=== PATIENT | male | born 1985 | race African-American/Black ===

== ENCOUNTER 2020-10-23 22:56 | Emergency (ER) | payer OTHER ==
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
[2020-10-24] MEDS ORDERED: ACETAMINOPHEN 500 MG TAB ONE (02:14)
[2020-10-24 05:08] VITALS: TEMP 99.9
[2020-10-24 05:12] VITALS: BP 144/105; O2SAT 95
--- NOTE | 2020-10-24 09:18 | RAD REPORT ---
EXAM DESCRIPTION: RAD - Shoulder Left 2 View - 10/24/2020 12:42 am CLINICAL HISTORY: Left shoulder pain FINDINGS: No fracture or dislocation is seen. Mild narrowing of the AC joint.
--- NOTE | 2020-10-24 11:43 | RAD REPORT ---
EXAM DESCRIPTION: CT - Head C Spine Cap W Con - 10/24/2020 5:04 am ADDENDUM #1 Critical findings discussed with Dr. Segundo. Electronically signed by: Starla Fields MD 10/24/2020 12:27 AM CDT End of Addendum EXAM DESCRIPTION: Head C Spine Cap W Con CLINICAL HISTORY: 35 years Male neck pain, high mechanism COMPARISON: None TECHNIQUE: Images were obtained and axial, sagittal, and coronal planes. Intravenous contrast was ad ministered. One or more of the following dose optimizing techniques was utilized for this exam: Automated exposur e control, adjustment of the mA and/or kV according to patient size, and/or use of iterative reconstr uction technique. FINDINGS: CT brain: Ventricular system appears normal. Questioned increased attenuation peripheral p osterior fossa bilaterally possibly blood products. Beam hardening artifact also a possibility. No ab normal increased attenuation seen involving the supratentorial brain parenchyma. No evidence for skul l fracture. Symmetric aeration mastoid air cells bilaterally. Fluid left maxillary antrum. Additional lobular mucosal thickening left maxillary antrum. Mild mucosal thickening bilateral ethmoid and righ t maxillary sinuses. CT cervical spine: Height of the vertebral bodies is intact. Satisfactory alignment articular facets. Intact odontoid and predental space. Intact ring C1. Posterior elements intact all levels. Intact oc cipital condyles. No abnormalities lung apices. No focal disc protrusion seen. CT chest: No aortic dissection or dilatation. No pericardial or pleural effusions bilaterally. No frederick nopathy. No lung parenchymal infiltrates seen. Calcified granuloma medial right middle lobe. No pneum othorax. No acute osseous abnormality involving the thorax. No sternal fracture. Height of the thorac ic vertebral bodies is intact. CT abdomen pelvis: No abnormality involving the liver, spleen, pancreas, or adrenal glands bilaterall y. Prior cholecystectomy. Symmetric renal parenchyma bilaterally. No obstructing renal or ureteral ca lculi bilaterally. No hydronephrosis bilaterally. Unremarkable bladder. No abnormality of abdominal a juanito or portal vein. No adenopathy or abnormal fluid collections seen. No acute osseous abnormality i nvolving the lumbosacral spine. No sacral fracture. Height of the lumbar vertebral bodies is intact. Satisfactory alignment noted. Transverse processes intact all levels. IMPRESSION: 1. Questioned increased attenuation peripheral posterior fossa bilaterally possibly bl ood products. Beam hardening artifact also a possibility. Correlation with follow-up imaging versus m agnetic resonance study of the brain suggested for further characterization. 2. No acute fracture or subluxation involving the cervical spine. 3. No acute intrathoracic abnormality. 4. No acute intra-abdominal abnormality. No evidence for large organ laceration. Electronically signed by: Starla Fields MD 10/24/2020 12:07 AM CDT Due to temporary technical issues with the PACS/Fluency reporting system, reports are being signed by the in house radiologists without review as a courtesy to insure prompt reporting. The interpreting radiologist is fully responsible for the content of the report.
--- NOTE | 2020-10-24 11:53 | RAD REPORT ---
EXAM DESCRIPTION: CT - Head Brain Wo Cont - 10/24/2020 5:04 am CLINICAL HISTORY: The patient is 35 years old and is Male; PAIN TECHNIQUE: Axial computed tomography images of the head/brain without intravenous contrast. Sagitt al and coronal reformatted images were created and reviewed. This CT exam was performed using one o r more of the following dose reduction techniques: automated exposure control, adjustment of the mA and/or kV according to patient size, and/or use of iterative reconstruction technique. COMPARISON: CT of the head performed October 23, 2020 FINDINGS: BRAIN: Unremarkable. The rashid-white matter differentiation is preserved . No hemorrhag e. No significant white matter disease. No edema. No extra-axial fluid collections. VENTRICLES: Unremarkable. No ventriculomegaly. BONES/JOINTS: No acute fracture. SOFT TISSUES: Unremarkable. SINUSES: Minimal fluid is present within the left maxillary sinus. MASTOID AIR CELLS: Unremarkable as visualized. No mastoid effusion. ORBITS: Unremarkable as visualized. IMPRESSION: No acute intracranial hemorrhage. Electronically signed by: Jane Perez MD 10/24/2020 1:15 AM CDT Due to temporary technical issues with the PACS/Fluency reporting system, reports are being signed by the in house radiologists without review as a courtesy to insure prompt reporting. The interpreting radiologist is fully responsible for the content of the report.
== END 2020-10-24 02:13 | disposition home or self-care (01) ==
LOC: ER 22:56
DX: G44.319 Acute post-traumatic headache, not intractable (principal); V43.52XA Car driver injured in collision with other type car in traffic accident, initial encounter
CPT/HCPCS: 82565; 70450 ×2; 72125; 71260; 74177; 73030; 99284; Q9967; G0390

== ENCOUNTER 2024-11-23 06:19 | Day surgery (SDC) | payer OTHER ==
[2024-11-19 09:12] LABS: Absolute Lymphocytes (CBC) 1.1 K/uL (0.7-4.9); Hematocrit 45.5 % (39.6-49.0); Hemoglobin 15.1 g/dL (13.6-17.9); MCH 28.7 pg (27.0-35.0); MCHC 33.1 g/dL (32.0-36.0); MCV 86.5 fL (80-100); MPV 10.4 fL (7.6-11.3); Nucleated RBC Absolute Count 0.0 (0-0); Nucleated Red Blood Cells % 0.0 % (0-0); RBC Red Blood Cell Count 5.26 M/uL (4.33-5.43); White Blood Count 4.60 thou/uL (4.3-10.9)
--- NOTE | 2024-11-19 09:18 | RAD REPORT ---
Procedure: Chest Pa And Lat (2 Views) HISTORY: Preop for hernia repair COMPARISON: none FINDINGS: The lungs appear clear of acute infiltrate. No significant pleural effusion noted. The heart is mildly to moderately enlarged. IMPRESSION: No acute abnormality is displayed.
[2024-11-19 09:27] LABS: Anion Gap 9.5 mEq/L (5.0-15.0); BUN Blood Urea Nitrogen 8.0 mg/dL (7-18); Glucose Level 101.0 mg/dL (74-106); Potassium 4.5 mEq/L (3.5-5.1)
[2024-11-23] MEDS: Ringers Lactate 1,000 ML IV ONE (06:19)
[2024-11-23] MEDS ORDERED: HYDROMORPHONE HCL 1 MG/ML INJ ONE (07:13)
[2024-11-23] MEDS ORDERED: SUGAMMADEX SODIUM 200 MG/2 ML VIAL IV ONE (07:13)
[2024-11-23] MEDS ORDERED: ONDANSETRON 4 MG/2 ML VIAL ONE (07:17)
[2024-11-23] MEDS ORDERED: FENTANYL CITR 100 MCG/2 ML ONE ×2 (07:17→07:34)
[2024-11-23] MEDS ORDERED: LIDOCAINE 2% MPF 5 ML VIAL ONE ×2 (07:17→08:13)
[2024-11-23] MEDS ORDERED: MIDAZOLAM HCL 2 MG/2 ML INJ ONE (07:17)
[2024-11-23] MEDS ORDERED: ROCURONIUM 50 MG/5 ML VIAL IV ONE (07:17)
[2024-11-23] MEDS: CEFAZOLIN SODIUM 2 GM/VIAL ONE (07:33)
[2024-11-23] MEDS ORDERED: NS 0.9% VIAL 10 ML ONE (07:53)
[2024-11-23] MEDS ORDERED: Phenylephrine HCl 10 MG/ML 1 ML VIAL ONE (07:53)
[2024-11-23] MEDS ORDERED: Mastisol Adhesive Liq ONE (08:12)
--- NOTE | 2024-11-23 08:32 | P.OP ---
Date of Service: 11/23/24 Preop diagnosis: Incarcerated umbilical hernia Postop diagnosis: Same Procedure performed: Laparoscopic assisted repair of incarcerated umbilical hernia Surgeon: Jovanny Hernandez MD Electrical Assistant: None Estimated blood loss: Minimal Specimen: Hernia sac and contents Findings: As above Anesthesia: General Complications: None Drains: None Fluids and blood products: Nonapplicable Disposition: Recovery room Operative note: Patient brought to the OR placed in supine position. General anesthesia began. Patient prepped and draped in usual sterile fashion. Marcaine 0.5% very locally. 15 blade used to make a 1 cm left upper quadrant incision. Subcutaneous tissue divided and bleeding controlled cautery. Fascia identified and divided. #1 Vicryl stay suture placed. Peritoneal cavity entered with sharp and blunt dissection. 12 mm trocar placed into the peritoneal cavity under direct vision. Pneumoperitoneum established. L aparoscopy revealed a incarcerated preperitoneal fat containing umbilical hernia. The opening was very small. Then, a curvilinear approximately 3 cm incision was made below the umbilicus. Subcutaneous tissue divided. Bleeding controlled cautery. Hernia sac identified. Sharp and blunt dissection used to go to the base of the hernia sac. Preperitoneal fat and hernia sac excised and sent to pathology as specimen. The hernia defect actually was smaller than 1 cm. #1 PDS suture was used to close that wound. As the opening was very small the mesh was not required. Pneumoperitoneum was reestablished. There was no evidence of bowel injury or bleeding noted. The trocar was removed under direct vision. Stay sutures were tied to each other to reapproximate the fascial defect. Subcutaneous wounds irrigated and bleeding controlled cautery. 3-0 chromic used to approximate subcutaneous tissue and close skin. Sterile dressing applied. Patient awakened and taken to recovery room in good general condition. CC: Dr. Reddy's office
[2024-11-23 10:08] VITALS: BP 156/81; TEMP 97.6; O2SAT 95
== END 2024-11-23 09:53 | disposition home or self-care (01) ==
LOC: OR 06:19
PROVIDERS: ATTEND Surgery
PROC: 0WQF4ZZ Repair Abdominal Wall, Percutaneous Endoscopic Approach (ICD-10-PCS; principal; 2024-11-23 07:30)
DX: K42.0 Umbilical hernia with obstruction, without gangrene (principal)
CPT/HCPCS: 93005; 85025; 80048; 36415; 88302; 71046; 49592; A4216; J2704; J2371; J2003 ×2; J2250; J3010 ×2; J1100; J1171; J2405; J7120